=== PATIENT | male | born 1965 | race Two or more races ===

== ENCOUNTER 2019-08-30 13:25 | Emergency (ER) | payer MEDICAID, OTHER ==
[~2019-08-30] VITALS: Ht 162.6 cm; Wt 70.3 kg
[2019-08-30 13:50] VITALS: BP 135/65
[2019-08-30] MEDS ORDERED: TETANUS-DIPTH-ACEL PERTUSSIS 0.5ML SYRG IM ONE (16:30)
== END 2019-08-30 17:18 | disposition home or self-care (01) ==
LOC: ER 13:32
DX: S61.210A Laceration without foreign body of right index finger without damage to nail, initial encounter (principal); W26.9XXA Contact with unspecified sharp object(s), initial encounter; Y93.89 Activity, other specified; Y92.89 Other specified places as the place of occurrence of the external cause; Y99.8 Other external cause status
CPT/HCPCS: 12002; 73140; 90471; 90715

== ENCOUNTER 2019-09-11 10:36 | Emergency (ER) | payer MEDICAID ==
[~2019-09-11] VITALS: Ht 167.6 cm; Wt 69.4 kg
[2019-09-11 12:34] VITALS: BP 118/66
== END 2019-09-11 14:03 | disposition home or self-care (01) ==
LOC: ER 10:36
DX: S61.219D Laceration without foreign body of unspecified finger without damage to nail, subsequent encounter (principal); L08.9 Local infection of the skin and subcutaneous tissue, unspecified; X58.XXXD Exposure to other specified factors, subsequent encounter